=== PATIENT | female | born 1975 | race Caucasian/White ===

== ENCOUNTER → 2020-09-29 | Outpatient (CLI) | payer OTHER ==
[~2020-09-29] MED LIST: IBUPROFEN800 MG PO; MOBIC15 MG PO; NORCO 7.5-3251 EACH PO; OMEPRAZOLE20 M1 PO; PREDNISONE20 MG PO
== END ==
LOC: EXRD 09:51
DX: R10.13 Epigastric pain (principal)
CPT/HCPCS: 76700